=== PATIENT | male | born 1975 | race Caucasian/White ===

== ENCOUNTER 2023-06-15 10:03 | Outpatient (CLI) | payer BC, SELFPAY | END 2023-06-15 10:04 | disposition home or self-care (01) | PROVIDERS: PCP Family Medicine; Referring Provider Family Medicine; Visit Provider Family Medicine | DX: E78.5 Hyperlipidemia, unspecified (principal); E66.9 Obesity, unspecified; Z13.29 Encounter for screening for other suspected endocrine disorder; Z13.1 Encounter for screening for diabetes mellitus | CPT/HCPCS: 80053; 80061; 84443 ==

== ENCOUNTER 2023-07-26 19:14 | Outpatient (CLI) | payer BC, SELFPAY ==
--- NOTE | 2023-08-04 13:14 | W.PM.SLEEP ---
Sleep Study Details Details Interpreting Provider: Don Date of Sleep Study: 07/26/23 Sleep Study Details: STUDY TYPE:? Home unattended ? BMI:? 51.6 ORDERING PROVIDER:? Don INDICATION:? Concerns about sleep apnea ? SLEEP SUMMARY:? 422.8 minutes monitored RESPIRATORY SUMMARY:? AHI 36.3 Low oxygen 77 51% of study oxygen less than 90% Snoring 85.5% PERIODIC LIMB MOVEMENTS OF SLEEP:? Not recorded during home study CARDIAC:? Range 64-104, mean 78.8 beats per minute IMPRESSION:? Severe obstructive sleep apnea, significant hypo oxygenation, possible obesity hypoventilation syndrome RECOMMENDATION: Recommend either in-lab titration or AutoSet CPAP 5-17. After effective therapy is established he should have an overnight oximetry study.
== END 2023-07-26 19:15 | disposition home or self-care (01) ==
LOC: SLEEP 19:15
PROVIDERS: PCP Family Medicine; Visit Provider Otolaryngology
DX: G47.33 Obstructive sleep apnea (adult) (pediatric) (principal)
CPT/HCPCS: 95806

== ENCOUNTER 2023-08-17 09:35 | Outpatient (CLI) | payer BC, SELFPAY | END 2023-08-17 09:36 | disposition home or self-care (01) | PROVIDERS: PCP Family Medicine; Visit Provider Family Medicine | DX: I10 Essential (primary) hypertension (principal); E11.9 Type 2 diabetes mellitus without complications; Z79.84 Long term (current) use of oral hypoglycemic drugs | CPT/HCPCS: 80048 ==

== ENCOUNTER 2024-09-19 13:55 | Outpatient (CLI) | payer BC, SELFPAY | END 2024-09-19 13:56 | disposition home or self-care (01) | PROVIDERS: PCP Family Medicine; Visit Provider Family Medicine | DX: E11.9 Type 2 diabetes mellitus without complications (principal); E78.5 Hyperlipidemia, unspecified; Z79.84 Long term (current) use of oral hypoglycemic drugs; Z79.85 Long-term (current) use of injectable non-insulin antidiabetic drugs | CPT/HCPCS: 80048; 80061 ==